=== PATIENT | male | born 1955 | race Caucasian/White ===

== ENCOUNTER → 2024-02-11 | Outpatient (CLI) | payer MEDICARE | LOC: M PLAIMG 11:28 | PROVIDERS: ATTEND Nurse Practitioner Family | DX: N20.0 Calculus of kidney (principal) ==

== ENCOUNTER 2024-02-27 07:14 | Day surgery (SDC) | payer MEDICARE ==
[~2024-02-27] VITALS: Ht 180.3 cm; Wt 100.5 kg
[~2024-02-27 07:14] MED LIST: ATEN25TA PO; BUTA1CAP PO; GABA-1171 PO; GLUC1TAB58 PO; HYDR200T46 PO; IRON65TA2 PO; LOSA25TA13 PO; METH2.5T48 PO; THERTAB52 PO; VITA100093 PO; ceFAZolin SOD 2 GM in IV 1 EA IV ONE; folate PO
[2024-02-27] MEDS ORDERED: MIDAZOLAM INJ 2MG/2ML VIAL As Ordered ONE (07:44)
[2024-02-27] MEDS ORDERED: propofoL 200 MG/20 ML VIAL As Ordered ONE (07:44)
[2024-02-27] MEDS ORDERED: ONDANSETRON 4MG 2ML VIAL As Ordered ONE (07:44)
[2024-02-27] MEDS ORDERED: fentaNYL 100 MCG/2 ML INJECTION As Ordered ONE (07:44)
[2024-02-27] MEDS ORDERED: LIDOCAINE 2% 100MG/5ML SDV (FOR ANES.) As Ordered ONE (07:44)
[2024-02-27] MEDS ORDERED: LR 1,000 ML IV SCH ×2 (08:30→09:55)
[2024-02-27] MEDS ORDERED: ISOVUE-300 61% 100ML VIAL As Ordered ONE (08:54)
[2024-02-27] MEDS ORDERED: ACETAMINOPHEN 1000MG 100ML IV BAG As Ordered ONE (09:20)
[2024-02-27] MEDS ORDERED: ONDANSETRON 4MG 2ML VIAL IV PRN (09:55)
[2024-02-27] MEDS ORDERED: oxyCODONE 5MG TAB PO PRN (09:55)
[2024-02-27] MEDS ORDERED: fentaNYL 100 MCG/2 ML INJECTION IV PRN (09:55)
[2024-02-27 10:45] VITALS: BP 138/78; TEMP 97.6; O2SAT 96
[2024-02-27] MEDS ORDERED: PERCOCET 5MG/325MG TAB PO PRN (10:45)
== END 2024-02-27 11:03 | disposition home or self-care (01) ==
LOC: M SDC 07:14
PROVIDERS: ATTEND Urology
DX: N20.1 Calculus of ureter (principal); I10 Essential (primary) hypertension; K21.9 Gastro-esophageal reflux disease without esophagitis; E78.5 Hyperlipidemia, unspecified; G43.909 Migraine, unspecified, not intractable, without status migrainosus; G47.33 Obstructive sleep apnea (adult) (pediatric); Z79.899 Other long term (current) drug therapy; Z88.8 Allergy status to other drugs, medicaments and biological substances
CPT/HCPCS: 52356; 76000; 82365; C1769; C1894; C2617; J0131; J1100; J2250; J2405; J3010; Q9967